=== PATIENT | male | born 1965 | race Caucasian/White ===

== ENCOUNTER 2024-07-01 09:37 | Emergency (ER) | payer BC, OTHER, SELFPAY ==
[2024-07-01 09:51] VITALS: BP 123/74; PULSE 75; RESP 16; TEMP 36.6; O2SAT 98
--- NOTE | 2024-07-01 10:00 | DI.RAD_ITS ---
Exam(s) XR HAND LT COMPLETE EXAM: XR HAND LT COMPLETE CLINICAL HISTORY: L hand swelling. TECHNIQUE: 2D digital imaging was performed of the left hand. Three views were obtained. AP, later al and oblique views were obtained. COMPARISON: No exams were available for comparison FINDINGS: BONES: No acute fracture is present. No bony destructive lesion is seen. JOINTS: No dislocation present. Mild degenerative changes are present. SOFT TISSUE: Normal. IMPRESSION: No acute fracture or dislocation. DATA REPOSITORY: RADIATION DOSE DELIVERED:
[2024-07-01 10:49] VITALS: BP 123/74; PULSE 75; RESP 16; TEMP 36.6; O2SAT 98
--- NOTE | 2024-07-01 10:53 | ED.GENADUL_ITS ---
Discharge Plan Disposition Patient Disposition: Home Condition: Stable Discharge Details Clinical Impression: Cellulitis of left hand Primary Care Provider: Antonella,Local ED Provider: Marv Dunn Home Meds and New Rx's Prescriptions: New sulfamethoxazole-trimethoprim 800-160 mg tablet 1 tab PO BID 10 Days Qty: 20 0RF Discharge Instructions Instructions: Sulfamethoxazole and Trimethoprim, Cellulitis (Skin Infection), Adult ED Additional Instructions: You were seen in the emergency department for the mild cellulitis of your left hand, this likely came from a minor microscopic break in the skin allowing some bacteria to get in and causing a minor infection. I have prescribed an antibiotic called Bactrim [place], please take this as directed, take Tylenol and ibuprofen as needed for pain, please return to the medical facility for reevaluation should you experience increasing redness despite treatment, increasing swelling, fever, red streaking up the arm, involuntary flexion of your fingers. You should note marked improvement by day 3 on antibiotics. Discharge Data Discharge Date/Time-TO BE ENTERED AT DEPARTURE: 07/01/24 11:08 HPI General Date/Time Provider Initiated Documentation: 07/01/24 10:00 . HPI Narrative: 58 year-old male presents to ED today by POV/ambulating with a chief complaint of L hand swelling and redness- R-hand dominant, with onset after working on a car yesterday, had to hit a wrench w left hand on a stuck bolt. Quality described as pain and swelling, no radiation to break in skin, flexion of fingers, inability to use the hand, numbness/tingling, drainage, bruising, proximal forearm pain. Severity is described as moderate. Palliating factors include nothing specific attempted. Provoking factors include nothing specific. Patient not anticoagulated. Related Data Home Medications ?Medication ?Instructions ?Recorded ?Confirmed sulfamethoxazole 800 1 tab PO BID cellulitis 10 days 07/01/24 mg-trimethoprim 160 mg tablet #20 tabs Previous Rx's ?Medication ?Instructions ?Recorded sulfamethoxazole 800 1 tab PO BID cellulitis 10 days 07/01/24 mg-trimethoprim 160 mg tablet #20 tabs Allergies Allergy/AdvReac Type Severity Reaction Status Date / Time No Known Allergies Allergy Unverified 07/01/24 09:55 General Stated Complaint: Cellulitis BRENDAN: 3 Review of Systems All systems reviewed & are unremarkable except as noted in HPI and below Exam Narrative Exam Narrative: GENERAL APPEARANCE: Well-nourished, non-toxic, awake and alert, atraumatic, no acute distress. 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 EYES: Normal conjunctiva, no exudates on lids/lashes. ENT: Nares patent, no circumoral cyanosis, no facial swelling NECK: Supple, trachea midline, painless cervical ROM. LUNGS/CHEST: Non-labored respirations, normal A/P diameter, symmetrical expansion, no chest wall deformity HEART (CV/PV): Regular rate, L radial pulse 2+, no peripheral edema, no JVD. ABDOMEN: Soft, non-distended, no guarding. MSK: Normal ROM, no swelling/deformity to bilateral UEs or LEs, moving all extremities without weakness, no cyanosis, spine midline without tenderness, normal curvature. NEURO: Mental Status AAOx4 - alert to person, place, time, events No facial droop, no forehead involvement. Motor: No focal weakness - strength 5/5 in bilateral UEs and LEs, proximal and distal, symmetric. Sensory: sensation intact to light touch globally. Gait normal: patient ambulated without ataxia into ED room. PSYCH: euthymic, cooperative, pleasant, appropriate speech Course Vital Signs Vital signs: Vital Signs Temperature 36.6 C 07/01/24 09:51 Pulse 75 07/01/24 09:51 Respiratory Rate 16 07/01/24 09:51 Blood Pressure 123/74 07/01/24 09:51 Pulse Oximetry 98 07/01/24 09:51 Temperature 36.6 C 07/01/24 10:49 Pulse 75 07/01/24 10:49 Respiratory Rate 16 07/01/24 10:49 Respiratory Effort Normal, Non-Labored 07/01/24 10:49 Blood Pressure 123/74 07/01/24 10:49 Pulse Oximetry 98 07/01/24 10:49 Oxygen Delivery Method Room Air 07/01/24 10:49 Oxygen Flow Rate 0 07/01/24 10:49 Pain Level 3 07/01/24 10:49 Medical Decision Making This dictation utilizes [id number] dictation software and may contain unedited grammatical errors. 58 year-old male presents to ED today by POV/ambulating with a chief complaint of L hand swelling and redness- R-hand dominant, with onset after working on a car yesterday, had to hit a wrench w left hand on a stuck bolt. Quality described as pain and swelling, no radiation to break in skin, flexion of fingers, inability to use the hand, numbness/tingling, drainage, bruising, proximal forearm pain. Severity is described as moderate. Palliating factors include nothing specific attempted. Provoking factors include nothing specific. Patients' medical history: Noncontributory, otherwise healthy. Family and social history: Frequently works on cars, visiting area from [facility]. Pertinent exam findings / vital signs include mild swelling and erythema to the dorsal left hand, left radial pulse 2+, no flexion of fingers, sensation and brisk capillary refill distal, no drainages or fluctuant swelling. Differential / pathologies of concern include cellulitis, question whether there could be a small metal splinter but there is no break in the skin, fracture. Diagnostic studies of: -XR L hand-no acute fracture. Interventions of: -Outpatient prescription for Bactrim for cellulitis. ED Course/Assessment/Plan: 58-year-old man was working on a car yesterday, had a wrench stuck on a boat and had hit the wrench with his left hand, no more than usual, had some pain around the pulleys of the fingers but not having swelling and redness to the dorsal hand, there is no obvious break in the skin I do not suspect any foreign body especially with a negative x-ray, there is no evidence of fracture, the patient is neurovascularly intact distal has what appears to be a mild cellulitis, I prescribed him an outpatient prescription for Bactrim and recommend he follow-up with his primary care provider with strict return criteria for any signs of neurovascular compromise or involuntary flexion of fingers. Findings not consistent with abscess, flexor tenosynovitis, neurovascular compromise, fracture, foreign body. Disposition of Cellulitis of Left Hand. Patient verbalized understanding of the plan and return to ED criteria and engaged in shared decision making. Medical Records Medical records reviewed: Yes I reviewed the patient's medical records. Imaging Data Radiologic Study: Attestation: I personally reviewed and interpreted this imaging study as follows: Imaging: X-Ray Radiologist's impression: Exam: XR Left Hand Exam date and time: 07/01/2024 10:34 AM Age: 58 years old Clinical indication: Other: Left hand swelling no known injury TECHNIQUE: Imaging protocol: Radiologic exam of the left hand. Views: 3 or more views. COMPARISON: No relevant prior studies available. FINDINGS: Bones/joints: There is no evidence of acute fracture.There is no evidence of malalignment or dislocation. Joint space narrowing in the DIP joints and PIP joints of the fingers and IP joint of the thumb consistent with degenerative changes Soft tissues: Normal. IMPRESSION: There is no evidence of acute fracture.There is no evidence of malalignment or dislocation. Dictated and Authenticated by: Raleigh Fernando MD. Quality:SDOH Health Related Social Needs: No Data to Display PFSH All Active Problems (Updated 07/01/24 @ 10:58 by TONI Hurd) Cellulitis of left hand (Acute) Social History Smoking/Tobacco Use Status: Never Smoking risk assessment performed?: Yes Alcohol Intake: former Drug use: Never Substance use type: does not use
--- NOTE | 2024-07-01 11:24 | DI.VRAD_ITS ---
PROCEDURE INFORMATION: Exam: XR Left Hand Exam date and time: 07/01/2024 10:34 AM Age: 58 years old Clinical indication: Other: Left hand swelling no known injury TECHNIQUE: Imaging protocol: Radiologic exam of the left hand. Views: 3 or more views. COMPARISON: No relevant prior studies available. FINDINGS: Bones/joints: There is no evidence of acute fracture.There is no evidence of malalignment or dislocation. Joint space narrowing in the DIP joints and PIP joints of the fingers and IP joint of the thumb consistent with degenerative changes Soft tissues: Normal. IMPRESSION: There is no evidence of acute fracture.There is no evidence of malalignment or dislocation. Dictated and Authenticated by: Raleigh Fernando MD. Ordering:FAHEEM aFir MD
== END 2024-07-01 11:08 | disposition home or self-care (01) ==
LOC: ER 11:12
PROVIDERS: Emergency Provider Physician Assistant
DX: L03.114 Cellulitis of left upper limb (principal); R22.32 Localized swelling, mass and lump, left upper limb; W22.8XXA Striking against or struck by other objects, initial encounter
CPT/HCPCS: 99283; 73130